=== PATIENT | female | born 1990 | race Caucasian/White ===

== ENCOUNTER 2018-09-06 05:00 | Emergency (ER) | payer OTHER ==
[2018-09-06 05:35] VITALS: BMI 25.3
[2018-09-06] MEDS ORDERED: ONDANSETRON 4 MG/2 ML VIAL IVPUSH ONE (06:14)
[2018-09-06] MEDS ORDERED: SODIUM CHLORIDE 0.9% 1000 ML INFUS.BAG IV ONE (06:14)
[2018-09-06] MEDS ORDERED: FAMOTIDINE 20 MG/50 ML IVPB 20 MG/50 ML MG IVPB ONE ×3 (06:14→08:18)
[2018-09-06] MEDS ORDERED: ONDANSETRON 4 MG/2 ML VIAL ONE (06:17)
--- NOTE | 2018-09-06 06:21 | PDOC ---
History of Present Illness - General Chief Complaint: Vomiting/Diarrhea Stated Complaint: VOMITING,DIARRHEA Time Seen by Provider: 09/06/18 06:09 History Source: Patient Exam Limitations: No Limitations - History of Present Illness Initial Comments: 09/06/18 06:16 27F with a PMH of a "thyroid problem" who presents to the ER with complaints of nausea, vomiting, diarrhea, and abdominal pain. The patient states that she woke up around 0200 this morning and felt sudden onset nausea with NBNB vomiting , diarrhea, and abdominal pain. She states that she vomited 3 times at home and 2 times in the car. She states that she had "a lot" of diarrhea. Denies recent abx. Denies smoking, drinking, drugs. States that she has sharp epigastric, nonradiating pain. Denies abdominal surgery. Past History - Past Medical History Allergies/Adverse Reactions: Allergies Allergy/AdvReac Type Severity Reaction Status Date / Time No Known Allergies Allergy Verified 09/06/18 05:31 Home Medications: Ambulatory Orders NK [No Known Home Medication] 09/06/18 Thyroid Disease: Yes - Immunization History Immunization Up to Date: Yes - Suicide/Smoking/Psychosocial Hx Smoking History: Never smoked Have you smoked in the past 12 months: No Information on smoking cessation initiated: No Hx Alcohol Use: No Drug/Substance Use Hx: No Substance Use Type: None Review of Systems - Review of Systems Able to Perform ROS?: Yes Comments:: 09/06/18 06:19 GENERAL/CONSTITUTIONAL: + for chills. No fever. No weakness. HEAD, EYES, EARS, NOSE AND THROAT: No change in vision. No ear pain or discharge. No sore throat. CARDIOVASCULAR: No chest pain, palpitations, or lightheadedness. RESPIRATORY: No cough, wheezing, shortness of breath, or hemoptysis. GASTROINTESTINAL: + for abdominal pain, nausea, vomiting, and diarrhea. GENITOURINARY: No dysuria, frequency, hematuria, or change in urination. MUSCULOSKELETAL: No joint or muscle swelling or pain. No neck or back pain. SKIN: No rash or lesions. NEUROLOGIC: No headache, numbness, tingling, focal weakness, loss of consciousness, or change in strength/sensation. Is the patient limited [place] proficient: No *Physical Exam - Vital Signs Last Vital Signs Temp Pulse Resp BP Pulse Ox 99.3 F 90 20 116/71 97 09/06/18 05:00 09/06/18 05:00 09/06/18 05:00 09/06/18 05:00 09/06/18 05:00 - Physical Exam Comments: 09/06/18 06:20 GENERAL: Well developed, well nourished. Awake and alert. No acute distress. HEENT: Normocephalic, atraumatic. Hearing grossly normal. Moist mucous membranes. PERRLA, EOMI. No conjunctival pallor. Sclera are non-icteric. NECK: Supple. Full ROM. No JVD. CARDIOVASCULAR: Regular rate and rhythm. No murmurs, rubs, or gallops. PULMONARY: No evidence of respiratory distress. Lungs clear to auscultation bilaterally. No wheezing, rales or rhonchi. ABDOMINAL: Soft. TTP in epigastrium. Negative Brambila's. Non-distended. No rebound or guarding. GENITOURINARY: No CVA tenderness bilaterally. MUSCULOSKELETAL: Normal range of motion at all joints. No bony deformities or tenderness. EXTREMITIES: No cyanosis. No clubbing. No edema. No calf tenderness or swelling. SKIN: Warm and dry. Normal capillary refill. No rashes. No jaundice. NEUROLOGICAL: Alert, awake, appropriate. Cranial nerves 2-12 grossly intact. Normal speech. Gait is normal without ataxia. PSYCHIATRIC: Cooperative. Good eye contact. Appropriate mood and affect. ED Treatment Course - LABORATORY CBC & Chemistry Diagram: 09/06/18 06:15 09/06/18 06:15 Medical Decision Making - Medical Decision Making 09/06/18 06:20 27F with a PMH of "thyroid problem" presents to the ER with sudden onset nausea , vomiting, diarrhea, and epigastric abdominal pain concerning for PUD, gastritis, pancreatitis. Will give symptomatic medications (IVF, pepcid, zofran) . Pending labs. 09/06/18 07:12 Pt signed out to Dr. Reyna for further evaluation. *DC/Admit/Observation/Transfer - Discharge Dispostion Condition at time of disposition: Fair - Referrals - Patient Instructions - Post Discharge Activity
--- NOTE | 2018-09-06 06:36 | PDOC ---
Attending Attestation - Resident Resident Name: Rex Martin - ED Attending Attestation I have performed the following: I have examined & evaluated the patient, The case was reviewed & discussed with the resident, I agree w/resident's findings & plan - HPI HPI: 09/06/18 06:30 27-year-old female with nausea vomiting diarrhea and abdominal cramping times one day. - Physicial Exam PE: 09/06/18 06:34 agree with resident exam - Medical Decision Making 09/06/18 06:35 27-year-old female with vomiting and diarrhea and abdominal cramping Labs pending IV fluid normal saline, antiemetics and antacids Case of be signed out to [facility] for reevaluation and disposition
[2018-09-06 06:40] LABS: HEMATOCRIT 39.3 % (32.4-45.2); HEMOGLOBIN 13.4 GM/dL (10.7-15.3); LYMPH % 15.9 % (8-40); MCH 29.3 pg (25.7-33.7); MCHC 33.9 g/dl (32.0-36.0); MEAN CELL VOLUME 86.4 fl (80-96); MEAN PLT VOLUME 10.5 fl (7.5-11.1); NEUT % 78.1 % (42.8-82.8); PLATELET COUNT 237 K/MM3 (134-434); RBC 4.55 M/mm3 (3.60-5.2); RDW 15.2 % (11.6-15.6); WHITE BLOOD COUNT 9.5 K/mm3 (4.0-10.0)
[2018-09-06 07:08] LABS: ALBUMIN 4.2 g/dl (3.4-5.0); BILIRUBIN,TOTAL 0.4 mg/dL (0.2-1); CALCIUM 9.3 mg/dL (8.5-10.1); POTASSIUM 3.9 mmol/L (3.5-5.1); TOT PROT 8.5 g/dl (6.4-8.2)
--- NOTE | 2018-09-06 07:19 | PDOC ---
*Physical Exam - Vital Signs Last Vital Signs Temp Pulse Resp BP Pulse Ox 99.3 F 90 20 116/71 97 09/06/18 05:00 09/06/18 05:00 09/06/18 05:00 09/06/18 05:00 09/06/18 05:00 ED Treatment Course - LABORATORY CBC & Chemistry Diagram: 09/06/18 06:15 09/06/18 06:15 - ADDITIONAL ORDERS Additional order review: Laboratory Results 09/06/18 09/06/18 06:15 06:15 Sodium 141 Potassium 3.9 Chloride 108 H Carbon Dioxide 22 Anion Gap 11 BUN 16.0 Creatinine 1.0 Est GFR (CKD-EPI)AfAm 90.68 Est GFR (CKD-EPI)NonAf 78.24 Random Glucose 118 H Calcium 9.3 Total Bilirubin 0.4 AST 12 L ALT 20 Alkaline Phosphatase 153 H Total Protein 8.5 H Albumin 4.2 Lipase 132 Serum , Qual Negative 09/06/18 06:15 RBC 4.55 MCV 86.4 MCHC 33.9 RDW 15.2 MPV 10.5 Neutrophils % 78.1 Lymphocytes % 15.9 D Monocytes % 5.0 Eosinophils % 0.0 D Basophils % 1.0 D - Medications Given in the ED: ED Medications Discontinued Medications Generic Name Dose Route Start Last Admin Trade Name Freq PRN Reason Stop Dose Admin Famotidine/Sodium Chloride 20 mg in 50 mls @ 100 mls/hr 09/06/18 06:14 06:24 Pepcid 20 Mg Premixed Ivpb - IVPB 09/06/18 06:43 100 mls/hr ONCE ONE Administration Ondansetron HCl 4 mg 09/06/18 06:14 09/06/18 06:24 Zofran Injection IVPUSH 09/06/18 06:15 4 mg ONCE ONE Administration Sodium Chloride 1,000 ml 09/06/18 06:14 09/06/18 06:24 Normal Saline - IV 09/06/18 06:15 1,000 ml ONCE ONE Administration Medical Decision Making - Medical Decision Making Sign out received from Dr. Martin. 09/06/18 07:12 Labs reviewed, WBC wnl, urine negative 09/06/18 07:19 Patient reassessed. No longer having epigastric tenderness to palpation. Nausea improved. Willing to attempt PO challenge with ice water. Requests any outpatient anti-nausea medication to be liquid, as her throat is painful 2/2 vomiting. 09/06/18 07:25 Lipase 132 09/06/18 08:13 Nausea improved. Still a bit of pain, 5/10 from 11/29. Also feeling heartburn. Will redose Pepcid and give IV acetaminophen. Patient tolerating water. Will start PO challenge. 09/06/18 08:19 Pain resolved, patient will attempt PO. 09/06/18 09:00 UA negative leuk esterase, negative nitrates 09/06/18 09:51 *DC/Admit/Observation/Transfer Diagnosis at time of Disposition: Nausea & vomiting, Abdominal pain, Diarrhea - Discharge Dispostion Disposition: HOME Condition at time of disposition: Improved Decision to Admit order: No - Prescriptions Prescriptions: Ondansetron HCl [Zofran] 4 mg PO ONCE #5 tablet - Referrals - Patient Instructions Printed Discharge Instructions: Nausea and Vomiting-Adult Additional Instructions: Please maintain adequate hydration. Take one Zofran tablet if your nausea comes back. Return to the ED for severe abdominal pain, or if you start having profuse vomiting and/or diarrhea. - Post Discharge Activity
[2018-09-06] MEDS ORDERED: ACETAMINOPHEN 1000 MG/100 ML VIAL (NON FORMULARY) IVPB ONE (08:19)
[2018-09-06] MEDS ORDERED: ACETAMINOPHEN INJECTION 100 ML IVPB ONE (08:22)
[2018-09-06] MEDS ORDERED: MAG HYDROX/AL HYDROX/SIMETH -MYLANTA- ORAL SUSPENSION PO ONE (08:27)
[2018-09-06] MEDS ORDERED: MAG HYDROX/AL HYDROX/SIMETH 30 ML UNIT-DOSE CUP ONE (09:02)
[2018-09-06 09:50] LABS: EPI CELLS 14.9 /HPF (0-5/HPF); HYALINE CASTS 2 /lpf (0-8); PH,URINE 6.5 (5.0-8.0); URINE APPEARANCE CLOUDY; URINE BACTERIA 673.8 /hpf (NEGATIVE); URINE BILIRUBIN NEGATIVE (NEGATIVE); URINE COLOR YELLOW; URINE GLUCOSE (UA) NEGATIVE (NEGATIVE); URINE KETONE NEGATIVE (NEGATIVE); URINE LEUK ESTERASE NEGATIVE (NEGATIVE); URINE NITRITE NEGATIVE (NEGATIVE); URINE PROTEIN NEGATIVE (NEGATIVE); URINE RBC 15 /hpf (0-4)
[2018-09-06 10:22] VITALS: BP 138/85; PULSE 89; TEMP 97.6
[2018-09-06 14:50] LABS: URINE CRYSTALS CA OXALATE /hpf; URINE WBC 13.2 /hpf (0-5); YEAST NONE SEEN (NEGATIVE)
== END 2018-09-06 10:21 | disposition home or self-care (01) ==
LOC: JER 05:00
PROC: 3E033GC Introduction of Other Therapeutic Substance into Peripheral Vein, Percutaneous Approach (ICD-10-PCS; principal; 2018-09-06)
PROC: 3E033GC Introduction of Other Therapeutic Substance into Peripheral Vein, Percutaneous Approach (ICD-10-PCS; 2018-09-06)
PROC: 3E033NZ Introduction of Analgesics, Hypnotics, Sedatives into Peripheral Vein, Percutaneous Approach (ICD-10-PCS; 2018-09-06)
DX: R10.9 Unspecified abdominal pain (principal); R11.2 Nausea with vomiting, unspecified; R19.7 Diarrhea, unspecified
CPT/HCPCS: 36415; 80053; 81003; 83690; 84703; 85025; 99282-25; J0131; J7030

== ENCOUNTER 2018-09-08 13:27 | Emergency (ER) | payer OTHER ==
[2018-09-08 13:46] VITALS: BP 131/74; PULSE 80; TEMP 98.6; BMI 23.0
[2018-09-08] MEDS ORDERED: SODIUM CHLORIDE 1,000 ML IV STA (14:14)
--- NOTE | 2018-09-08 14:25 | PDOC ---
History of Present Illness - General Chief Complaint: Diarrhea Stated Complaint: DIZZY,FATIGUE,SICK Time Seen by Provider: 09/08/18 14:07 History Source: Patient Exam Limitations: No Limitations Past History - Past Medical History Allergies/Adverse Reactions: Allergies Allergy/AdvReac Type Severity Reaction Status Date / Time No Known Allergies Allergy Verified 09/08/18 13:46 Home Medications: Ambulatory Orders Ondansetron HCl [Zofran] 4 mg PO ONCE #5 tablet 09/06/18 COPD: No Thyroid Disease: Yes - Immunization History Immunization Up to Date: Yes - Suicide/Smoking/Psychosocial Hx Smoking History: Never smoked Have you smoked in the past 12 months: No Hx Alcohol Use: No Drug/Substance Use Hx: No Substance Use Type: None *Physical Exam - Vital Signs Last Vital Signs Temp Pulse Resp BP Pulse Ox 98.6 F 80 18 131/74 99 09/08/18 13:44 09/08/18 13:44 09/08/18 13:44 09/08/18 13:44 09/08/18 13:44 - Physical Exam General Appearance: No: Apparent Distress Respiratory/Chest: positive: Lungs Clear, Normal Breath Sounds. negative: Respiratory Distress Cardiovascular: positive: Regular Rhythm, Regular Rate, S1, S2. negative: Murmur Gastrointestinal/Abdominal: positive: Normal Bowel Sounds, Soft. negative: Tender, Distended, Guarding, Rebound Neurologic: positive: Alert, Normal Mood/Affect ED Treatment Course - LABORATORY CBC & Chemistry Diagram: 09/08/18 14:40 09/08/18 14:14 Medical Decision Making - Medical Decision Making 27 y/o F with hx of hypothyroidism presents with persistent watery diarrhea since 3 days ago; states having around 10 episodes of diarrhea a day. Was seen 2 days ago in ED for nausea, vomiting and diarrhea; the vomiting stopped 2 days ago but the diarrhea still persists. Also with minimal lower abdominal cramping. Feeling weak and lightheaded as well. +subjective fever. Mentions going to pool 6 days ago, but that pool was clean. Did not take any antipyretics today. Denies recent travel, use of abx, possible bad food exposure , sick contacts, sob, cp, urinary complaints. Patient afebrile, abdomen nontender Likely non-inflammatory diarrhea; less likely diverticulitis, C. diff infection Patient had normal CBC 2 days ago Will check electrolytes and give IVF Will also collect stool culture, lytes, O&P 09/08/18 14:17 Labs unremarkable Patient was able to provide stool specimen Patient endorses feeling much better than before 09/08/18 15:33 *DC/Admit/Observation/Transfer Diagnosis at time of Disposition: Gastroenteritis - Discharge Dispostion Disposition: HOME Condition at time of disposition: Improved Decision to Admit order: No - Referrals Referrals: Dandre Guidry MD [Primary Care Provider] - 2 Days - Patient Instructions Printed Discharge Instructions: DI for Viral Gastroenteritis -- Adult Additional Instructions: Thank you for choosing [facility]. It was a pleasure taking care of you. Your labs were unremarkable Your stool labs are pending and will receive a callback if anything abnormal results For now, recommend hydration - at least 2-3L of water daily Eat light food like bananas, rice, applesauce, toast, plain yogurt until feeling better Follow-up with your doctor in 2 days Return to the Emergency Department if your symptoms worsen or persist, you have fever, severe abdominal pain, unable to keep down liquids, blood in stools or other concerning symptoms. - Post Discharge Activity
[2018-09-08 14:54] LABS: BASO % 0.9 % (0-2.0); EOS % 0.1 % (0-4.5); HEMATOCRIT 38.7 % (32.4-45.2); LYMPH % 30.1 % (8-40); MCH 28.7 pg (25.7-33.7); MCHC 33.7 g/dl (32.0-36.0); MEAN CELL VOLUME 85.3 fl (80-96); MEAN PLT VOLUME 9.9 fl (7.5-11.1); MONO % 14.7 % (3.8-10.2); NEUT % 54.2 % (42.8-82.8); PLATELET COUNT 169 K/MM3 (134-434); RBC 4.54 M/mm3 (3.60-5.2); RDW 14.9 % (11.6-15.6); WHITE BLOOD COUNT 4.5 K/mm3 (4.0-10.0)
[2018-09-08 15:20] LABS: BLOOD UREA NITROGEN 11.3 mg/dL (7-18); CALCIUM 8.8 mg/dL (8.5-10.1); MAGNESIUM 2.3 mg/dL (1.8-2.4); POTASSIUM 3.7 mmol/L (3.5-5.1)
[2018-09-12 17:07] LABS: STOOL CHLORIDE 62 mmol/L (.); STOOL POTASSIUM 42 mmol/L (.); STOOL SODIUM 115 mmol/L (.)
== END 2018-09-08 16:00 | disposition home or self-care (01) ==
LOC: JER 13:27
PROC: 3E0337Z Introduction of Electrolytic and Water Balance Substance into Peripheral Vein, Percutaneous Approach (ICD-10-PCS; principal; 2018-09-08)
DX: K52.9 Noninfective gastroenteritis and colitis, unspecified (principal); E03.9 Hypothyroidism, unspecified
CPT/HCPCS: 36415; 80048; 82438; 83690; 83735; 84302; 84999; 85025; 87045; 87046; 87177; 87186; 87209; 96360; 99282-25; J7030

== ENCOUNTER 2023-12-01 20:12 | Emergency (ER) | payer OTHER ==
[2023-12-01 20:17] VITALS: BP 164/96; PULSE 86; RESP 18; TEMP 98.2; BMI 34.2
[2023-12-01] MEDS ORDERED: DIPHTH,PERTUSS(ACELL),TET 0.5 ML DISP.SYRIN IM ONE (21:19)
[2023-12-01] MEDS: DIPHTH,PERTUSS(ACELL),TET 0.5 ML DISP.SYRIN IM ONE (21:22)
== END 2023-12-01 22:30 | disposition home or self-care (01) ==
LOC: JERFT 20:12
PROC: 3E0234Z Introduction of Serum, Toxoid and Vaccine into Muscle, Percutaneous Approach (ICD-10-PCS; principal; 2023-12-01)
DX: S60.410A Abrasion of right index finger, initial encounter (principal); W23.0XXA Caught, crushed, jammed, or pinched between moving objects, initial encounter; Z23 Encounter for immunization
CPT/HCPCS: 73130-TC-RT-FY; 90471; 90715; 99283-25